=== PATIENT | female | born 1985 | race Caucasian/White ===

== ENCOUNTER 2025-06-18 17:20 | Emergency (ER) | payer MEDICAID, SELFPAY ==
[2025-06-18 17:28] VITALS: BP 122/77; PULSE 107; RESP 20; TEMP 36.4; O2SAT 96
[2025-06-18] MEDS: Ketorolac 15 MG/ML VIAL IM (18:17)
[2025-06-18] MEDS: oxyCODONE 5 mg/Acetaminophen 325 mg TAB 1 TAB PO (18:18)
[2025-06-18] MEDS: Benzocaine 20% Gel 30 GM JAR MM (18:19)
[2025-06-18] MEDS: oxyCODONE 5 MG TAB PO (19:35)
[2025-06-18] MEDS: Clindamycin 150 MG CAP, 12 CAPS/BTL 450 MG PO (19:35)
[2025-06-18 19:36] VITALS: BP 122/77; PULSE 107; RESP 20; TEMP 36.4; O2SAT 96
--- NOTE | 2025-06-18 22:57 | ED.GENADUL_ITS ---
Discharge Plan Disposition Patient Disposition: Home Discharge Details Clinical Impression: Abscess, dental Primary Care Provider: Unknown,Unknown ED Provider: Ondina Pinzon Home Meds and New Rx's Prescriptions: New clindamycin HCl [Cleocin HCl] 150 mg capsule 450 mg PO TID Qty: 78 0RF clindamycin HCl [Cleocin HCl] 150 mg capsule 450 mg PO TID Qty: 78 0RF No Action ibuprofen [Motrin IB] 200 mg tablet 600 mg PO Q6H 5 Days Qty: 60 0RF acetaminophen 500 mg capsule 1,000 mg PO Q6H PRNQty: 90 0RF Discharge Instructions Instructions: Tooth Abscess (DC) Additional Instructions: Take antibiotic as prescribed Gargle with salt water which is warm if you are able to several times a day Follow-up with a dentist, I placed a list of resources for you Take Motrin and Tylenol for pain control I have given you a single dose of oxycodone for home, use this sparingly You may have a foul taste in your mouth, this is likely the abscess draining This should feel better tomorrow please return should you develop new or worsening complaints Stand Alone Forms: Portal Information Discharge Data Discharge Date/Time-TO BE ENTERED AT DEPARTURE: 06/18/25 19:26 HPI General Date/Time Provider Initiated Documentation: 06/18/25 17:35 . HPI Narrative: This 40 yo female with lower jaw swelling started yesterday. Denies any fever or chills. She is having pain with chewing. Denies chest pain or difficulty swallowing. She denies any chance of . Patient is currently on her last. Of note, she states her feet are really blistered and hurting as her shoes are 2 sizes too small. She is hoping we can help. Related Data Home Medications ?Medication ?Instructions ?Recorded ?Confirmed clindamycin HCl 150 mg capsule 450 mg (3 x 150 mg) PO TID #78 caps 06/18/25 06/20/25 (Cleocin HCl) acetaminophen 500 mg capsule 1,000 mg (2 x 500 mg) PO Q6H PRN 06/20/25 #90 caps clindamycin HCl 150 mg capsule 450 mg (3 x 150 mg) PO TID #78 caps 06/20/25 06/20/25 (Cleocin HCl) ibuprofen 200 mg tablet (Motrin IB) 600 mg (3 x 200 mg ) PO Q6H 5 days 06/20/25 #60 tabs Previous Rx's ?Medication ?Instructions ?Recorded clindamycin HCl 150 mg capsule 450 mg (3 x 150 mg) PO TID #78 caps 06/18/25 (Cleocin HCl) acetaminophen 500 mg capsule 1,000 mg (2 x 500 mg) PO Q6H PRN 06/20/25 #90 caps clindamycin HCl 150 mg capsule 450 mg (3 x 150 mg) PO TID #78 caps 06/20/25 (Cleocin HCl) ibuprofen 200 mg tablet (Motrin IB) 600 mg (3 x 200 mg ) PO Q6H 5 days 06/20/25 #60 tabs Allergies Allergy/AdvReac Type Severity Reaction Status Date / Time amoxicillin Allergy Intermediate Other (See Verified 06/20/25 20:31 Comment) morphine AdvReac Intermediate Other (See Verified 06/20/25 20:31 Comment) General Stated Complaint: DentalOral ELIN: 3 Exam Narrative Exam Narrative: Abscess noted to #21, mild fluctuance no evidence of deep space infection, mild trismus oropharynx patent, uvula midline left mandibular swelling Course Vital Signs Vital signs: Vital Signs Temperature 36.4 C L 06/18/25 17:28 Pulse 107 H 06/18/25 17:28 Respiratory Rate 20 06/18/25 17:28 Blood Pressure 122/77 06/18/25 17:28 Pulse Oximetry 96 06/18/25 17:28 Temperature 36.4 C L 06/18/25 19:36 Temperature Source Skin 06/18/25 19:36 Pulse 107 H 06/18/25 19:36 Respiratory Rate 20 06/18/25 19:36 Blood Pressure 122/77 06/18/25 19:36 Blood Pressure Position Sitting 06/18/25 19:36 Pulse Oximetry 96 06/18/25 19:36 Oxygen Delivery Method Room Air 06/18/25 19:36 Oxygen Flow Rate 0 06/18/25 19:36 Pain Level 10 06/18/25 19:36 Procedure Abscess Drainage Date of Procedure: 06/18/25 Time of Procedure: 23:59 Provider that performed the procedure: Ondina De Paz Time Out Performed: Yes Patient Consented: Verbally Location of Exam: Oral Nerve Block 1st Nerve Block: Date of Procedure: 06/19/25 Time of procedure: 00:01 Provider that performed the procedure: Ondina Pinzon Indication: Procedural Standard Time Out Performed: Yes Patient Consented: Verbally Laterality: Left Intraoral Nerve Block: inferior alveolar Ultrasound: Not used Procedure Outcome: Successful Medical Decision Making Assessment and plan: #21 dental abscess was drained in the emergency department, patient had significant improvement in symptoms, secondary to pain and swelling. Trismus has resolved. Clindamycin initiated, no evidence of Yuri's angina/ dental referral supplied. Patient was given a pair of shoes, her feet were examined, she has some blisters that do not appear infected. No additional therapy is necessary at this time. Will place on referral list for PCP establish care. PFSH All Active Problems (Updated 06/20/25 @ 20:58 by Alber Simpson DO) Abscess, dental (Acute) Social History Smoking/Tobacco Use Status: Current every day Tobacco Type: e-cigarettes Smoking risk assessment performed?: Yes Alcohol Intake: never Drug use: Occasionally Substance use type: methamphetamine Details: Pt states she smokes meth occasionally 06/18/25 Pt states she vapes daily 06/18/25 Do you feel safe at home: Yes Do you feel safe in your relationship?: Yes POCUS Exam (ED) Limited Soft Tissue Exam PROVIDER THAT PERFORMED THE STUDY: Ondina Pinzon
== END 2025-06-18 19:26 | disposition home or self-care (01) ==
LOC: ER 19:48
PROVIDERS: Emergency Provider Physician Assistant
DX: K04.7 Periapical abscess without sinus (principal); K02.7 Dental root caries; F17.210 Nicotine dependence, cigarettes, uncomplicated
CPT/HCPCS: 10060; 96374; 99283; J1885

== ENCOUNTER 2025-06-20 20:22 | Emergency (ER) | payer MEDICAID, SELFPAY ==
[2025-06-20 20:22] VITALS: BP 99/63; PULSE 106; RESP 16; TEMP 37.2; O2SAT 99
[2025-06-20] MEDS: Ketorolac 30 MG/ML VIAL IM (20:48)
[2025-06-20] MEDS: Acetaminophen 500 MG TAB 1000 MG PO ×2 (20:48→21:35)
--- NOTE | 2025-06-20 20:52 | ED.GENADUL_ITS ---
Discharge Plan Disposition Patient Disposition: Home Condition: Good Discharge Details Clinical Impression: Abscess, dental Primary Care Provider: Unknown,Unknown ED Provider: Alber Simpson Home Meds and New Rx's Prescriptions: New ibuprofen [Motrin IB] 200 mg tablet 600 mg PO Q6H 5 Days Qty: 60 0RF acetaminophen 500 mg capsule 1,000 mg PO Q6H PRNQty: 90 0RF No Action clindamycin HCl [Cleocin HCl] 150 mg capsule 450 mg PO TID Qty: 78 0RF clindamycin HCl [Cleocin HCl] 150 mg capsule 450 mg PO TID Qty: 78 0RF Discharge Instructions Instructions: Dental Pain Additional Instructions: The block we administered should help improve your pain. Please take 800 mg of ibuprofen every 6 hours and 1000 mg of Tylenol every 6 hours to help with the inflammation and pain. These are the maximum doses. Please take the antibiotic as directed to help with the infection in your tooth. Please use the dental list that we have provided to contact the dentist for prompt follow-up and evaluation for tooth removal. If you notice any worsening of your symptoms, or any new symptoms such as difficulty swallowing, difficulty breathing, vomiting, diarrhea, fever, chills, shortness of breath, chest pain, numbness, weakness, or fainting , please return immediately to the emergency department for reevaluation. Please follow up with your primary care provider as soon as possible for reassessment and reevaluation. As always, it was a pleasure participating in your medical care today. Stand Alone Forms: Portal Information HPI General Date/Time Provider Initiated Documentation: 06/20/25 20:37 . HPI Narrative: This is a 40-year-old female with past medical history of severe dental caries who presents today for reassessment for dental pain. Patient was seen and assessed here 48 hours ago on 06/18/2025 for dental pain and dental abscess. She was started on clindamycin secondary to an allergy to penicillins, she was given a single oxycodone tab for pain control, and recommended to take NSAIDs for pain control. She was given a dental sheet and is planning on calling the dental offices tomorrow morning which is Saturday. She returns today as she has had return of her swelling in her left lower jaw, and continued pain. She does not have any Tylenol or Motrin at home. She presents tonight via ambulance. No other complaints at this time. No difficulty swallowing or drinking. No chest pain or shortness of breath. No vomiting. Patient has been taking the clindamycin as prescribed. Related Data Home Medications ?Medication ?Instructions ?Recorded ?Confirmed clindamycin HCl 150 mg capsule 450 mg (3 x 150 mg) PO TID #78 caps 06/18/25 06/20/25 (Cleocin HCl) acetaminophen 500 mg capsule 1,000 mg (2 x 500 mg) PO Q6H PRN 06/20/25 #90 caps clindamycin HCl 150 mg capsule 450 mg (3 x 150 mg) PO TID #78 caps 06/20/25 1 08/21/24 (Cleocin HCl) ibuprofen 200 mg tablet (Motrin IB) 600 mg (3 x 200 mg ) PO Q6H 5 days 06/20/25 #60 tabs Previous Rx's ?Medication ?Instructions ?Recorded clindamycin HCl 150 mg capsule 450 mg (3 x 150 mg) PO TID #78 caps 06/18/25 (Cleocin HCl) acetaminophen 500 mg capsule 1,000 mg (2 x 500 mg) PO Q6H PRN 06/20/25 #90 caps clindamycin HCl 150 mg capsule 450 mg (3 x 150 mg) PO TID #78 caps 06/20/25 (Cleocin HCl) ibuprofen 200 mg tablet (Motrin IB) 600 mg (3 x 200 mg ) PO Q6H 5 days 06/20/25 #60 tabs Allergies Allergy/AdvReac Type Severity Reaction Status Date / Time amoxicillin Allergy Intermediate Other (See Verified 06/20/25 20:31 Comment) morphine AdvReac Intermediate Other (See Verified 06/20/25 20:31 Comment) General Stated Complaint: Recheck ELIN: 4 Exam Narrative Exam Narrative: 1.Const: Well-nourished, Well-developed, appearing stated age 2.Eyes: PERRL, no conjunctival injection, and symmetrical lids. 3.ENT: Atraumatic external nose and ears. Moist MM. Neck: Symmetric, trachea midline, No thyromegaly. Notable dental caries throughout, poor dentition. Left-sided lower jaw swelling around the remnants of tooth 22. No evidence of Ludewig's angina. No swelling of the posterior oropharynx. 4.CVS: +S1/S2, Peripheral pulses 2+ and equal in all extremities. Brisk capi llary refill in all extremities. 5.RESP: Unlabored respiratory effort. Clear to auscultation bilaterally. No wheezes rales or rhonchi 6.GI: Soft, Nontender/Nondistended, No hepatosplenomegaly. No guarding or rebound. 7.MSK: Normocephalic/Atraumatic, Extremities w/o deformity or ttp No cyanosis or clubbing, Normal movement of all extremities 8.Skin: Warm, Dry. No rashes or lesions. 9.Neuro: information operator II-XII grossly intact. Sensation grossly intact, no focal neurologic deficits. 10.Psych: (AAO) x3. Appropriate mood and affect Course Vital Signs Vital signs: Vital Signs Temperature 37.2 C 06/20/25 20:22 Pulse 106 H 06/20/25 20:22 Respiratory Rate 16 06/20/25 20:22 Blood Pressure 99/63 L 06/20/25 20:22 Pulse Oximetry 99 06/20/25 20:22 Temperature 37.2 C 06/20/25 20:22 Temperature Source Temporal Artery Scan 06/20/25 20:22 Pulse 106 H 06/20/25 20:22 Respiratory Rate 16 06/20/25 20:22 Blood Pressure 99/63 L 06/20/25 20:22 Blood Pressure Position Sitting 06/20/25 20:22 Pulse Oximetry 99 06/20/25 20:22 Oxygen Delivery Method Room Air 06/20/25 20:22 Oxygen Flow Rate 0 06/20/25 20:22 Pain Level 10 06/20/25 20:22 Procedure Abscess Drainage Date of Procedure: 06/20/25 Time of Procedure: 21:54 Provider that performed the procedure: Alber De Paz Time Out Performed: No Patient Consented: Verbally Location of Exam: Oral Indication: Abscess. Local anesthetic: Bupivicaine 0.5%, Amount of Local Anesthetic Used(mL): 6. Sterility: Non Sterile. Procedure Prep: Hand hygiene and Surgical Mask. Technique used needle aspiration. Amount of fluid expressed(mL): 1. Irrigation: No irrigation Outcome: Sucessful Medical Decision Making This is a 40-year-old female with past medical history of severe dental caries w ho presents today for reassessment for dental pain. Patient was seen and assessed here 48 hours ago on 06/18/2025 for dental pain and dental abscess. She was started on clindamycin secondary to an allergy to penicillins, she was given a single oxycodone tab for pain control, and recommended to take NSAIDs for pain control. She was given a dental sheet and is planning on calling the dental offices tomorrow morning which is Saturday. She returns today as she has had return of her swelling in her left lower jaw, and continued pain. She does not have any Tylenol or Motrin at home. She presents tonight via ambulance. No other complaints at this time. No difficulty swallowing or drinking. No chest pain or shortness of breath. No vomiting. Patient has been taking the clindamycin as prescribed. Physical exam demonstrates a well-appearing female, no evidence of Ludewig's angina, swelling of the posterior oropharynx, or other significant abnormality. She does have swelling in the left lower jaw around the remnants of tooth 22. Symptomatology appears consistent with periapical abscess that has reformed after initial drainage. Patient was treated notably appropriately on her initi al visit, but I do feel she requires repeat I&D of the area. Antibiotics are appropriate. Unfortunately she is missing the need for continued NSAID therapy. I will write a prescription for both Tylenol and Motrin for her, but also recommended to pick it up [id number] for use if she is able to. Recommend continuation of the antibiotic and close follow-up with dentist. Dental block was administered and patient had complete resolution of her symptoms. I&D was abscess x 2, small amount of pus and blood was removed. Patient feels well. Prescription for Tylenol and Motrin was sent. Recommend continuation of antibiotics. Discussed red flags which to return. I have extensively reviewed the treatment plan and discharge instructions with the patient. I have addressed all patient concerns at this time. The patient was made aware of what symptoms to monitor for that would warrant a return to the emergency department. Discussed the plan with the patient, they demonstrate verbal understanding and agreement with our assessment and plan at this time. The documentation in this chart was dictated using [employer] dictation software. Please excuse any dictation errors. PFSH All Active Problems (Updated 06/20/25 @ 20:58 by Alber Simpson DO) Abscess, dental (Acute) Social History Smoking/Tobacco Use Status: Current every day Tobacco Type: e-cigarettes Smoking risk assessment performed?: Yes Alcohol Intake: never Drug use: Occasionally Substance use type: methamphetamine Details: Pt states she smokes meth occasionally 06/18/25 Pt states she vapes daily 06/18/25 Do you feel safe at home: Yes Do you feel safe in your relationship?: Yes POCUS Exam (ED) Limited Soft Tissue Exam PROVIDER THAT PERFORMED THE STUDY: Alber Simpson
[2025-06-20] MEDS: Ibuprofen 800 MG TAB PO (21:35)
[2025-06-20] MEDS: Bupivacaine 0.5% Pres-Free 30 ML VIAL (21:39)
== END 2025-06-20 21:38 | disposition home or self-care (01) ==
PROVIDERS: Emergency Provider Student in an Organized Health Care Education/Training Program
DX: K04.7 Periapical abscess without sinus (principal); F17.290 Nicotine dependence, other tobacco product, uncomplicated
CPT/HCPCS: 10060; 64400; 96372; 99283; J0665; J1885